=== PATIENT | male | born 1975 | race Two or more races ===

== ENCOUNTER 2021-12-21 17:21 | Emergency (ER) | payer OTHER ==
[~2021-12-21] VITALS: Ht 167.6 cm; Wt 88.5 kg
[2021-12-21 17:48] VITALS: BP 158/94
--- NOTE | 2021-12-21 17:48 | NUR ---
BIBSELF HEAVY OBJECT FELL ON RT FOOT. PT A/OX4. TOLERATING R/A WELL WITH NO SOB
[2021-12-21] MEDS ORDERED: HYDROCODONE/APAP 5/325MG TABLET PO ONE (18:30)
[2021-12-21] MEDS ORDERED: HYDROCODONE/APAP 5/325MG TABLET ONE (18:38)
--- NOTE | 2021-12-21 20:14 | NUR ---
right posterior leg splint applied
[2021-12-21] MEDS ORDERED: IBUP-1955 PO (20:37)
[2021-12-21] MEDS ORDERED: HYDR-4303 PO (20:37)
--- NOTE | 2021-12-21 20:44 | NUR ---
Patient discharged to home in stable condition. Written and verbal after care instructions given. Patient verbalizes understanding of instruction.
== END 2021-12-21 21:00 | disposition home or self-care (01) ==
LOC: ER 17:28
DX: S92.311A Displaced fracture of first metatarsal bone, right foot, initial encounter for closed fracture (principal); S92.324A Nondisplaced fracture of second metatarsal bone, right foot, initial encounter for closed fracture; Z79.899 Other long term (current) drug therapy; W20.8XXA Other cause of strike by thrown, projected or falling object, initial encounter; Y93.89 Activity, other specified; Y92.89 Other specified places as the place of occurrence of the external cause; Y99.0 Civilian activity done for income or pay
CPT/HCPCS: 73630-TC